=== PATIENT | male | born 1995 | race Two or more races ===

== ENCOUNTER 2020-03-12 00:03 | Inpatient (IN) | payer MEDICAID, OTHER ==
[~2020-03-12] VITALS: Ht 162.6 cm; Wt 72.7 kg
[~2020-03-12 00:03] MED LIST: NOCURR
[2020-03-12 01:35] LABS: BASOPHILS % (AUTO) 0.1 % (0.0-2.0); EOSINOPHILS % (AUTO) 0.2 % (1.0-6.0); HEMOGLOBIN 15.1 g/dL (13.5-17.5); LYMPHOCYTES # (AUTO) 1.1 K/uL (1.0-4.8); LYMPHOCYTES % (AUTO) 6.2 % (22.0-44.0); MEAN CORPUSCULAR HEMOGLOBIN 32.4 pg (26.0-34.0); MEAN CORPUSCULAR VOLUME 90 fL (80-100); MONOCYTES # (AUTO) 1.1 K/uL (0.1-1.0); NEUTROPHILS # (AUTO) 15.8 K/uL (1.8-7.7); PLATELET COUNT (AUTO) 259 K/uL (150-450); RED BLOOD CELL COUNT(AUTO) 4.66 MIL/uL (4.50-5.90)
[2020-03-12 01:41] LABS: NEUTROPHILS % (AUTO) 87.5 % (40.0-70.0)
[2020-03-12 01:48] LABS: ALANINE AMINOTRANSFERASE 24 U/L (12-78); ALBUMIN 4.2 g/dL (3.4-5.0); ALKALINE PHOSPHATASE 88 U/L (46-116); ANION GAP 6 mmol/L (8-16); ASPARTATE AMINOTRANSFERASE 20 U/L (15-37); BILIRUBIN,TOTAL 0.7 mg/dL (0.1-1.0); CALCIUM, TOTAL 9.2 mg/dL (8.8-10.5); CARBON DIOXIDE 29 mmol/L (22-29); CHLORIDE 105 mmol/L (98-107); CREATININE 1.25 mg/dL (0.60-1.30); GLOMERULAR FILTR. RATE CALC > 60 mL/min (>60); GLUCOSE,RANDOM 106 mg/dL (70-110); POTASSIUM 3.6 mmol/L (3.5-5.1); SODIUM SERUM 140 mmol/L (136-145); TOTAL PROTEIN, SERUM 7.6 g/dL (6.4-8.2)
[2020-03-12 01:55] LABS: UREA NITROGEN, BLOOD 12 mg/dL (7-18)
[2020-03-12] MEDS ORDERED: RisperiDONE 1 MG TABLET PO ONE (02:30)
[2020-03-12 05:13] LABS: APPEARANCE,URINE CLOUDY (CLEAR); BILIRUBIN,URINE NEGATIVE (NEGATIVE); GLUCOSE, URINE (UA) NEGATIVE (NEGATIVE); KETONES,URINE NEGATIVE (NEGATIVE); LEUKOCYTE ESTERASE ,URINE NEGATIVE (NEGATIVE); NITRATE,URINE NEGATIVE (NEGATIVE); OCCULT BLOOD,URINE NEGATIVE (NEGATIVE); PROTEIN,URINE TRACE (NEGATIVE)
[2020-03-12 05:18] LABS: AMPHET/METH SCREEN,URINE NEGATIVE (NEGATIVE); BARBITURATE SCREEN, URINE NEGATIVE (NEGATIVE); BENZODIAZEPINES SCREEN,URINE NEGATIVE (NEGATIVE); CANNABINOID SCREEN,URINE POSITIVE (NEGATIVE); COCAINE SCREEN,URINE NEGATIVE (NEGATIVE); METHADONE SCREEN, URINE NEGATIVE (NEGATIVE); OPIATE SCREEN,URINE NEGATIVE (NEGATIVE)
[2020-03-12 05:22] LABS: PHENCYCLIDINE SCREEN,URINE NEGATIVE (NEGATIVE)
[2020-03-12 05:23] LABS: BACTERIA,URINE Moderate /HPF (None Seen); RBC,URINE 0-2 /HPF (0-2); SQUAMOUS EPITHELIAL CELL,UR Few /LPF (None Seen)
[2020-03-12] MEDS ORDERED: ZOLPIDEM TARTRATE 10 MG TABLET PO PRN (09:45)
[2020-03-12] MEDS ORDERED: LORazepam 2 MG/ML VIAL IM ONE (11:30)
[2020-03-12] MEDS ORDERED: DiphenhydrAMINE HCL 50 MG/ML VIAL IM ONE (11:30)
[2020-03-12] MEDS ORDERED: HALOPERIDOL LACTATE 5 MG/ML VIAL IM ONE (11:30)
[2020-03-12 11:46] LABS: COVID AG,FIA SOURCE NASOPHARYNGEAL
[2020-03-12] MEDS ORDERED: ALBUTEROL SULFATE HFA 90 MCG/PUFF 8 GM INHALER IH PRN (15:45)
[2020-03-12] MEDS ORDERED: MAG HYDROX/AL HYDROX/SIMETH ES 30 ML SUSPENSION UDCUP PO PRN (15:45)
[2020-03-12] MEDS ORDERED: DOCUSATE SODIUM 100 MG CAPSULE PO PRN (15:45)
[2020-03-12] MEDS ORDERED: GuaiFENesin/D-METHORPHAN [SUGAR-FREE] 200-20MG/10 ML SYRUP UDCUP PO PRN (15:45)
[2020-03-12] MEDS: NICOTINE 21 MG/24 HOUR PATCH TD SCH (15:45)
[2020-03-12] MEDS ORDERED: MAGNESIUM HYDROXIDE SUSPENSION 30 ML UDCUP PO PRN (15:45)
[2020-03-12] MEDS ORDERED: CloNIDine HCL 0.1 MG TABLET PO PRN (15:45)
[2020-03-12] MEDS ORDERED: IBUPROFEN 400 MG TABLET PO PRN (15:45)
[2020-03-12] MEDS ORDERED: PETROLATUM,WHITE 28 GM JELLY TP PRN (15:45)
[2020-03-12] MEDS ORDERED: LOPERAMIDE HCL 2 MG CAPSULE PO PRN (15:45)
[2020-03-12] MEDS ORDERED: ONDANSETRON HCL 4 MG TABLET PO PRN (15:45)
[2020-03-12] MEDS ORDERED: ACETAMINOPHEN 325 MG TABLET PO PRN (15:45)
[2020-03-12] MEDS: LORazepam 2 MG TABLET PO PRN (20:59)
[2020-03-13 07:53] LABS: BASOPHILS % (AUTO) 0.4 % (0.0-2.0); HEMATOCRIT 42.9 % (41-53); HEMOGLOBIN 14.9 g/dL (13.5-17.5); LYMPHOCYTES # (AUTO) 1.5 K/uL (1.0-4.8); LYMPHOCYTES % (AUTO) 18.3 % (22.0-44.0); MEAN CORPUSCULAR HEMOGLOBIN 31.5 pg (26.0-34.0); MEAN CORPUSCULAR HGB CONC 34.7 G/dL (31.0-37.0); MEAN CORPUSCULAR VOLUME 91 fL (80-100); MONOCYTES # (AUTO) 0.8 K/uL (0.1-1.0); MONOCYTES % (AUTO) 9.1 % (2.0-9.0); NEUTROPHILS # (AUTO) 5.9 K/uL (1.8-7.7); NEUTROPHILS % (AUTO) 70.2 % (40.0-70.0); PLATELET COUNT (AUTO) 229 K/uL (150-450); RED BLOOD CELL COUNT(AUTO) 4.73 MIL/uL (4.50-5.90)
[2020-03-13 08:17] LABS: ALANINE AMINOTRANSFERASE 26 U/L (12-78); ALBUMIN 3.9 g/dL (3.4-5.0); ALKALINE PHOSPHATASE 85 U/L (46-116); ANION GAP 8 mmol/L (8-16); ASPARTATE AMINOTRANSFERASE 32 U/L (15-37); CALCIUM, TOTAL 9.1 mg/dL (8.8-10.5); CARBON DIOXIDE 28 mmol/L (22-29); CHLORIDE 102 mmol/L (98-107); CHOL/HDL RATIO 2.4 (4.2-7.3); CHOLESTEROL 125 mg/dL (131-200); CREATININE 1.19 mg/dL (0.60-1.30); GLOMERULAR FILTR. RATE CALC > 60 mL/min (>60); GLUCOSE,RANDOM 77 mg/dL (70-110); HDL CHOLESTEROL 53 mg/dL (40-60); LDL CHOL (CALC.) 59 mg/dL (0-130); POTASSIUM 3.2 mmol/L (3.5-5.1); SODIUM SERUM 138 mmol/L (136-145); THYROID STIMULATING HORMONE 0.93 uIU/mL (0.36-3.74); TOTAL PROTEIN, SERUM 7.7 g/dL (6.4-8.2); TRIGLYCERIDES 67 mg/dL (15-150); UREA NITROGEN, BLOOD 11 mg/dL (7-18)
[2020-03-13] MEDS ORDERED: POTASSIUM CHLORIDE 20 MEQ ER TABLET PO ONE (08:30)
[2020-03-13 09:01] VITALS: BP 102/60
[2020-03-13] MEDS: NICOTINE 21 MG/24 HOUR PATCH TD SCH (09:06)
[2020-03-13] MEDS: RisperiDONE 3 MG TABLET PO SCH (12:47)
[2020-03-13] MEDS: ESCITALOPRAM OXALATE 10 MG TABLET PO SCH (12:47)
[2020-03-13 16:11] VITALS: BP 129/85
[2020-03-13] MEDS: HALOPERIDOL 5 MG TABLET PO PRN (19:55)
[2020-03-13] MEDS: LORazepam 2 MG TABLET PO PRN (19:55)
[2020-03-14 08:14] VITALS: BP 106/59
[2020-03-14] MEDS: RisperiDONE 3 MG TABLET PO SCH (09:10)
[2020-03-14] MEDS: LORazepam 2 MG TABLET PO PRN ×2 (09:10→16:29)
[2020-03-14] MEDS: ESCITALOPRAM OXALATE 10 MG TABLET PO SCH (09:10)
[2020-03-14] MEDS: NICOTINE 21 MG/24 HOUR PATCH TD SCH (09:10)
[2020-03-14] MEDS: HALOPERIDOL 5 MG TABLET PO PRN ×2 (09:10→16:29)
[2020-03-14 16:00] VITALS: BP 120/78
[2020-03-15 06:15] VITALS: BP 128/82
[2020-03-15 08:14] VITALS: BP 131/84
[2020-03-15] MEDS: HALOPERIDOL 5 MG TABLET PO PRN (09:03)
[2020-03-15] MEDS: NICOTINE 21 MG/24 HOUR PATCH TD SCH (09:03)
[2020-03-15] MEDS: RisperiDONE 3 MG TABLET PO SCH (09:03)
[2020-03-15] MEDS: ESCITALOPRAM OXALATE 10 MG TABLET PO SCH (09:03)
[2020-03-15] MEDS: LORazepam 2 MG TABLET PO PRN (09:03)
[2020-03-15 16:00] VITALS: BP 126/71
[2020-03-16 05:47] VITALS: BP 124/82
[2020-03-16 08:05] VITALS: BP 115/76
[2020-03-16] MEDS: ESCITALOPRAM OXALATE 10 MG TABLET PO SCH (08:45)
[2020-03-16] MEDS: RisperiDONE 3 MG TABLET PO SCH ×2 (08:45→21:23)
[2020-03-16] MEDS: NICOTINE 21 MG/24 HOUR PATCH TD SCH (08:45)
[2020-03-16 16:25] VITALS: BP 115/60
[2020-03-17 02:16] VITALS: BP 120/64
[2020-03-17 08:13] VITALS: BP 128/76
[2020-03-17] MEDS: NICOTINE 21 MG/24 HOUR PATCH TD SCH (08:18)
[2020-03-17] MEDS: RisperiDONE 3 MG TABLET PO SCH ×2 (08:18→20:09)
[2020-03-17] MEDS: ESCITALOPRAM OXALATE 10 MG TABLET PO SCH (08:18)
[2020-03-17 16:05] VITALS: BP 118/79
[2020-03-17] MEDS: LORazepam 2 MG TABLET PO PRN (16:54)
[2020-03-18 05:37] VITALS: BP 121/71
[2020-03-18 08:04] VITALS: BP 109/56
[2020-03-18] MEDS: RisperiDONE 3 MG TABLET PO SCH ×2 (08:49→20:25)
[2020-03-18] MEDS: NICOTINE 21 MG/24 HOUR PATCH TD SCH (08:49)
[2020-03-18] MEDS: ESCITALOPRAM OXALATE 10 MG TABLET PO SCH (08:49)
[2020-03-18 16:06] VITALS: BP 138/86
[2020-03-18] MEDS: HALOPERIDOL 5 MG TABLET PO PRN (16:44)
[2020-03-18] MEDS: LORazepam 2 MG TABLET PO PRN (16:44)
[2020-03-19 02:35] VITALS: BP 127/72
[2020-03-19 08:13] LABS: AMPHET/METH SCREEN,URINE NEGATIVE (NEGATIVE); BARBITURATE SCREEN, URINE NEGATIVE (NEGATIVE); BENZODIAZEPINES SCREEN,URINE NEGATIVE (NEGATIVE); CANNABINOID SCREEN,URINE POSITIVE (NEGATIVE); COCAINE SCREEN,URINE NEGATIVE (NEGATIVE); METHADONE SCREEN, URINE NEGATIVE (NEGATIVE); OPIATE SCREEN,URINE NEGATIVE (NEGATIVE)
[2020-03-19 08:15] VITALS: BP 127/89
[2020-03-19] MEDS: NICOTINE 21 MG/24 HOUR PATCH TD SCH (08:18)
[2020-03-19] MEDS: RisperiDONE 3 MG TABLET PO SCH ×2 (08:18→21:02)
[2020-03-19] MEDS: LORazepam 2 MG TABLET PO PRN ×2 (08:19→16:01)
[2020-03-19] MEDS: ESCITALOPRAM OXALATE 10 MG TABLET PO SCH (08:19)
[2020-03-19 08:34] LABS: APPEARANCE,URINE CLOUDY (CLEAR); BILIRUBIN,URINE NEGATIVE (NEGATIVE); GLUCOSE, URINE (UA) NEGATIVE (NEGATIVE); KETONES,URINE TRACE mg/dL (NEGATIVE); LEUKOCYTE ESTERASE ,URINE NEGATIVE (NEGATIVE); NITRATE,URINE NEGATIVE (NEGATIVE); OCCULT BLOOD,URINE NEGATIVE (NEGATIVE); PROTEIN,URINE NEGATIVE (NEGATIVE)
[2020-03-19 08:39] LABS: PHENCYCLIDINE SCREEN,URINE NEGATIVE (NEGATIVE)
[2020-03-19] MEDS: HALOPERIDOL 5 MG TABLET PO PRN (16:01)
[2020-03-19 16:12] VITALS: BP 113/67
[2020-03-20 06:07] VITALS: BP 116/84
[2020-03-20] MEDS: ESCITALOPRAM OXALATE 10 MG TABLET PO SCH (08:03)
[2020-03-20] MEDS: RisperiDONE 3 MG TABLET PO SCH ×2 (08:03→21:15)
[2020-03-20] MEDS: LORazepam 2 MG TABLET PO PRN ×2 (08:03→21:15)
[2020-03-20 08:05] VITALS: BP 139/65
[2020-03-20] MEDS: NICOTINE 21 MG/24 HOUR PATCH TD SCH (08:05)
[2020-03-20 18:25] VITALS: BP 111/68
[2020-03-21 06:11] VITALS: BP 130/72
[2020-03-21] MEDS: NICOTINE 21 MG/24 HOUR PATCH TD SCH (08:26)
[2020-03-21] MEDS: RisperiDONE 3 MG TABLET PO SCH ×2 (08:27→21:06)
[2020-03-21] MEDS: ESCITALOPRAM OXALATE 10 MG TABLET PO SCH (08:27)
[2020-03-21] MEDS: LORazepam 2 MG TABLET PO PRN ×2 (08:27→14:54)
[2020-03-22 08:42] VITALS: BP 109/67
[2020-03-22] MEDS: RisperiDONE 3 MG TABLET PO SCH ×2 (09:16→20:32)
[2020-03-22] MEDS: LORazepam 2 MG TABLET PO PRN ×2 (09:16→20:32)
[2020-03-22] MEDS: ESCITALOPRAM OXALATE 10 MG TABLET PO SCH (09:16)
[2020-03-22] MEDS: NICOTINE 21 MG/24 HOUR PATCH TD SCH (09:29)
[2020-03-22 16:29] VITALS: BP 114/64
[2020-03-23 06:26] VITALS: BP 132/61
[2020-03-23] MEDS: ESCITALOPRAM OXALATE 10 MG TABLET PO SCH (08:18)
[2020-03-23] MEDS: LORazepam 2 MG TABLET PO PRN ×2 (08:18→16:42)
[2020-03-23] MEDS: RisperiDONE 3 MG TABLET PO SCH ×2 (08:18→20:31)
[2020-03-23] MEDS: NICOTINE 21 MG/24 HOUR PATCH TD SCH (08:28)
[2020-03-23 16:12] VITALS: BP 103/60
[2020-03-23] MEDS: HALOPERIDOL 5 MG TABLET PO PRN (16:42)
[2020-03-24 03:00] VITALS: BP 110/61
[2020-03-24 08:21] VITALS: BP 120/73
[2020-03-24] MEDS: RisperiDONE 3 MG TABLET PO SCH ×2 (08:54→20:18)
[2020-03-24] MEDS: LORazepam 2 MG TABLET PO PRN ×2 (08:55→16:37)
[2020-03-24] MEDS: HALOPERIDOL 5 MG TABLET PO PRN ×2 (08:55→16:37)
[2020-03-24] MEDS: ESCITALOPRAM OXALATE 10 MG TABLET PO SCH (08:55)
[2020-03-24] MEDS: NICOTINE 21 MG/24 HOUR PATCH TD SCH (08:57)
[2020-03-24 16:41] VITALS: BP 123/61
[2020-03-25 06:26] VITALS: BP 118/66
[2020-03-25] MEDS: RisperiDONE 3 MG TABLET PO SCH ×2 (08:46→20:36)
[2020-03-25] MEDS: ESCITALOPRAM OXALATE 10 MG TABLET PO SCH (08:46)
[2020-03-25] MEDS: LORazepam 2 MG TABLET PO PRN ×2 (08:47→16:36)
[2020-03-25] MEDS: NICOTINE 21 MG/24 HOUR PATCH TD SCH (09:00)
[2020-03-25 16:06] VITALS: BP 101/60
[2020-03-25] MEDS: HALOPERIDOL 5 MG TABLET PO PRN (16:36)
[2020-03-26 05:54] VITALS: BP 120/64
[2020-03-26] MEDS: NICOTINE 21 MG/24 HOUR PATCH TD SCH (09:00)
[2020-03-26] MEDS: ESCITALOPRAM OXALATE 10 MG TABLET PO SCH (09:11)
[2020-03-26] MEDS: RisperiDONE 3 MG TABLET PO SCH ×2 (09:11→20:15)
[2020-03-26] MEDS: LORazepam 2 MG TABLET PO PRN ×2 (09:11→16:22)
[2020-03-26 16:09] VITALS: BP 110/67
[2020-03-26] MEDS: HALOPERIDOL 5 MG TABLET PO PRN (16:22)
[2020-03-27 01:00] VITALS: BP 118/68
[2020-03-27 08:21] VITALS: BP 130/89
[2020-03-27] MEDS: NICOTINE 21 MG/24 HOUR PATCH TD SCH (08:22)
[2020-03-27] MEDS: RisperiDONE 3 MG TABLET PO SCH (08:22)
[2020-03-27] MEDS: ESCITALOPRAM OXALATE 10 MG TABLET PO SCH (08:22)
[2020-03-27] MEDS ORDERED: RISP3TAB35 PO (12:47)
[2020-03-27] MEDS ORDERED: ESCI-8 PO (12:47)
== END 2020-03-27 14:00 | disposition home or self-care (01) | DRG 750 ==
LOC: EMS 00:03 → B3A 10:36
PROVIDERS: ADMIT Psychiatry & Neurology Child & Adolescent Psychiatry; ATTEND Psychiatry & Neurology Child & Adolescent Psychiatry
DX: F25.0 Schizoaffective disorder, bipolar type (principal); F19.10 Other psychoactive substance abuse, uncomplicated; F41.9 Anxiety disorder, unspecified; D72.829 Elevated white blood cell count, unspecified; E87.6 Hypokalemia; M79.671 Pain in right foot; F17.210 Nicotine dependence, cigarettes, uncomplicated; F12.10 Cannabis abuse, uncomplicated; Z59.0 Homelessness; R30.0 Dysuria; R45.851 Suicidal ideations; Z20.828 Contact with and (suspected) exposure to other viral communicable diseases
CPT/HCPCS: 80307; 83036; 83605; 84132; 84443; 87086; 87426; 99291; G0480; J1200; J1630; J2060; 36415-L1; 36415-TC; 71045-TC; 80061-TC; 81003-TC